=== PATIENT | female | born 1975 | race Two or more races ===

== ENCOUNTER 2023-06-01 09:29 | Emergency (ER) | payer OTHER ==
[2023-06-01 10:55] VITALS: BP 153/97; PULSE 77; RESP 18; TEMP 98; BMI 31.6
== END 2023-06-01 11:57 | disposition home or self-care (01) ==
LOC: JER 09:29 → JERFT 09:29
DX: S93.402A Sprain of unspecified ligament of left ankle, initial encounter (principal); M25.572 Pain in left ankle and joints of left foot; R22.42 Localized swelling, mass and lump, left lower limb; X50.1XXA Overexertion from prolonged static or awkward postures, initial encounter; Y93.01 Activity, walking, marching and hiking
CPT/HCPCS: 73610-TC-LT-FY; 73630-TC-LT; 99283-25